=== PATIENT | male | born 1970 | race Caucasian/White ===

== ENCOUNTER → 2017-02-02 | Outpatient (CLI) | payer BC ==
[~2017-02-02] MED LIST: BACITRACIN30 GM TOP; KEFLEX PO; [UNRECOGNIZED DRUG - REMARK] PO
--- NOTE | ~2017-02-02 | CR7 ---
[facility] A Service of [facility] RADIOLOGY TEXT RESULTS PATIENT: TANMAY JAIME LOCATION: [facility] : 70 UNIT #: [id number] AGE: [address]: Art Inman MD SEX: M ORDER DR: [id number] [place] [id number] O MR#: [id number] Acc #: [id number] NAME: TANMAY JAIME. : 1970 SEX: M STUDY DATE/TIME: 02/02/2017 13:54 UNIT: [facility] ROOM: STUDY DESCRIPTION: CR Abdomen Single AP View Attending Physician: Art Inman M.D. Referring Physician: Art Inman M.D. Ordering Physician: Art Inman M.D. Primary Care Physician: Eric Guerrero M.D. MEDICAL IMAGING REPORT This report is preliminary unless electronic signature is present. EXAM Abdomen, 02/02 COMPARISON 01/20/2017 HISTORY Renal calculus, lithotripsy 2 weeks ago on left side. FINDINGS Supine view of the abdomen was obtained. There is a calcification superimposed upon the left kidney measuring about 6 mm in diameter. This is suggestive of a stone. It may be the same calcification that was seen previously over the proximal ureter. The bowel gas pattern is normal. There are calcified phleboliths. IMPRESSION There is a 6-mm calcification on today's exam that is superimposed upon the mid left kidney. A similar calcification was superimposed upon the proximal left ureter on the previous study. Dictated by... Ayden Fabian M.D. THIS IS AN ELECTRONICALLY VERIFIED REPORT Ayden Fabian M.D. at 02/03/2017 7:07 AM FEL/psc TD: 02/02/2017 21:08 JOB #: [id number] [facility] A Service [facility] RADIOLOGY TEXT RESULTS PATIENT: TANMAY JAIME LOCATION: [facility] : 70 UNIT #: [id number] AGE: [address]: Art Inman MD SEX: M ORDER DR: MEDICAL IMAGING REPORT Page 1 of 1
== END | disposition home or self-care (01) ==
LOC: SRAD 13:42
DX: N20.0 Calculus of kidney (principal); N28.89 Other specified disorders of kidney and ureter
CPT/HCPCS: 74000